=== PATIENT | female | born 2005 | race Caucasian/White ===

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

== ENCOUNTER → 2025-01-30 | Outpatient (REF) | payer OTHER ==
[2025-01-30 19:19] LABS: GC DNA AMPLIFICATION NEGATIVE (NEGATIVE)
== END ==
LOC: M LAB REF 16:47
PROVIDERS: ATTEND Registered Nurse
DX: Z11.3 Encounter for screening for infections with a predominantly sexual mode of transmission (principal)

== ENCOUNTER → 2025-02-02 | Outpatient (CLI) | payer OTHER | LOC: M EKG 11:21 | PROVIDERS: ATTEND Registered Nurse | DX: R00.2 Palpitations (principal) ==